=== PATIENT | male | born 1965 | race Two or more races ===

== ENCOUNTER 2022-04-30 15:03 | Emergency (ER) | payer OTHER ==
[~2022-04-30] VITALS: Ht 177.8 cm; Wt 107.0 kg
[2022-04-30] MEDS ORDERED: ALBUTEROL2.5 MG/3 M IH (15:59)
== END 2022-04-30 20:53 | disposition home or self-care (01) ==
LOC: ER 15:03
DX: J45.998 Other asthma (principal); R06.02 Shortness of breath; I10 Essential (primary) hypertension; Z20.822 Contact with and (suspected) exposure to COVID-19